=== PATIENT | female | born 1995 | race Caucasian/White ===

== ENCOUNTER 2016-10-21 18:44 | Emergency (ER) | payer SELFPAY ==
[~2016-10-21] VITALS: Ht 162.6 cm; Wt 52.2 kg
[2016-10-21 19:24] VITALS: BP 119/73
[2016-10-21] MEDS ORDERED: IBUPROFEN 600 MG TABLET PO ONE ×2 (21:27→21:30)
== END 2016-10-21 22:20 | disposition home or self-care (01) ==
LOC: ER 18:47
DX: S39.012A Strain of muscle, fascia and tendon of lower back, initial encounter (principal); X50.9XXA Other and unspecified overexertion or strenuous movements or postures, initial encounter; Y93.89 Activity, other specified; Y92.89 Other specified places as the place of occurrence of the external cause; Y99.8 Other external cause status
CPT/HCPCS: 72110; 99284; A4606; Z7610